=== PATIENT | male | born 1970 | race Two or more races ===

== ENCOUNTER 2025-10-25 22:25 | Emergency (ER) | payer OTHER, SELFPAY ==
[2025-10-25 22:25] VITALS: BMI 31.0
--- NOTE | 2025-10-25 22:32 | EKG_ITS ---
[facility] Test Date: 2025-10-25 Pat Name: LOUISE ANTHONY Department: Room: - Gender: Male [employer] Turner: : 1970 Requested By: Sandy Epperson Order Number: [id number] Reading MD: Sandy Epperson Measurements Intervals [place] Rate: 78 P: 45 ID: [id number] QRS: -7 QRSD: 82 T: 29 QT: 342 QTc: 390 Interpretive Statements SINUS RHYTHM INFERIOR MYOCARDIAL INFARCTION , PROBABLY OLD [40+ ms Q WAVE AND/OR ST/T ABNORMALITY IN II/aVF] No previous ECG available for comparison /[id number]/[id number].pdf
[2025-10-25 22:39] VITALS: BP 158/115; BP 172/110; PULSE 73; RESP 18; TEMP 37.1; O2SAT 96
[2025-10-25 22:57] VITALS: BP 165/97
--- NOTE | 2025-10-25 22:57 | XR_ITS ---
EXAMINATION: PA chest single view TECHNIQUE: Upright PA chest single view Date and time: October 25, 2025, 11:07 p.m. INDICATIONS: Chest pain today. FINDINGS: Suspicious for early right lower lobe pneumonia Normal heart size No pulmonary edema IMPRESSION: Suspicious for early right lower lobe pneumonia
--- NOTE | 2025-10-25 22:58 | PD.EDRME ---
Rapid Medical Screening Exam RME Arrival date/time: 10/25/25 22:25 This is a case of 55-year-old male who came into the emergency room due to chest pain no shortness of breath no palpitation the patient states that he had a blood test last June and noted to be elevated LDL level patient also had echo echocardiogram stress test and Holter monitor which is also normal Chief Complaint: Chest Pain Time Seen by Provider: 10/25/25 22:37 Vital signs: Vital Signs Temperature 98.8 F 10/25/25 22:39 Pulse Rate 73 10/25/25 22:39 Respiratory Rate 18 10/25/25 22:39 Blood Pressure 158/115 H 10/25/25 22:39 Pulse Oximetry (%) 96 10/25/25 22:39 Oxygen Delivery Method Room Air 10/25/25 22:39 Exam: Normal rate regular rhythm no murmur clear breath sound no pitting edema Clinical Impression: chest pain
[2025-10-25 23:24] LABS: Basophils # (Auto) 0.0 Thou/mm3 (0.0-0.2); Basophils % (Auto) 0 % (0-2.5); Eosinophils # (Auto) 0.3 Thou/mm3 (0.0-0.5); Eosinophils % (Auto) 4 % (0-10); Hematocrit 43.2 % (41.0-53.0); Hemoglobin 14.1 g/dL (13.5-16.0); Immature Granulocytes Auto 0.03 Thou/mm3 (0.00-0.00); Lymphocytes # (Auto) 2.1 Thou/mm3 (1.0-4.8); Lymphocytes % (Auto) 28 % (10-50); Mean Corpuscular HGB Conc 32.6 g/dl (31.0-37.0); Mean Corpuscular Hemoglobin 28.9 pg (25.0-35.0); Mean Corpuscular Volume 89 fL (80-100); Monocytes # (Auto) 0.7 Thou/mm3 (0.0-0.8); Monocytes % (Auto) 10 % (0-12); Neutrophils # (Auto) 4.4 Thou/mm3 (1.8-7.7); Neutrophils % (Auto) 58 % (37-80); Nucleated Red Blood Cell # 0.00 Thou/mm3 (0.00-0.00); Nucleated Red Blood Cell % 0 /100 WBC (0); Platelet Count 255 Thou/mm3 (140-440); RDW Standard Deviation 41.5 fL (35.1-43.9); Red Blood Count 4.88 Miln/mm3 (4.50-5.90); White Blood Count 7.6 Thou/mm3 (3.8-10.6)
[2025-10-25 23:45] LABS: B-Type Natriuretic Peptide < 20 pg/mL (0-100)
[2025-10-25 23:47] LABS: Alanine Aminotransferase 26 U/L (10-49); Albumin, Serum 4.9 gm/dL (3.5-5.0); Albumin/Globulin Ratio 1.8 (1.2-2.2); Alkaline Phosphatase 109 U/L (46-116); Anion Gap 10 (7-16); Aspartate Amino Transferase 26 U/L (0-34); BUN/Creatinine Ratio 10 Ratio (12-20); Bilirubin,Total 0.7 mg/dL (0.3-1.2); Blood Urea Nitrogen 13 mg/dL (9-23); Calcium 9.5 mg/dL (8.3-10.6); Calcium (Corrected) 9.5 mg/dL (8.5-10.1); Carbon Dioxide 28.0 mMol/L (20.0-31.0); Chloride 105 mMol/L (98-107); Creatinine (Component) 1.3 mg/dL (0.6-1.3); Estimated Creatinine Clearance 72.3 mL/min (>60); Globulin 2.7 gm/dL (2.3-3.5); Glucose 88 mg/dL (74-106); Osmolality,Calculated 284 (275-295); Potassium 4.5 mMol/L (3.4-5.1); Sodium 143 mMol/L (136-145); Total Protein 7.6 gm/dL (5.7-8.2); Troponin I < 0.002 ng/mL (0.0-0.045); eGFR > 60 See Note
[2025-10-25 23:51] LABS: Collection Type, Urine Clean Catch
[2025-10-25 23:58] LABS: Bilirubin,Urine Negative (Negative); Blood,Urine Negative (Negative); Clarity,Urine Clear (Clear/Hazy); Color,Urine Lt-Yellow (Lt Yel-Yel); Glucose, Urine Negative (Negative); Ketones,Urine Negative (Negative); Leukocyte Esterase,Urine Negative (Negative); Nitrite,Urine Negative (Negative); PH,Urine 6.0 (5.0-7.0); Protein,Urine Negative (Neg - Trace); RBC,Urine 4 /hpf (0-3); Specific Gravity,Urine 1.027 (1.001-1.035); Squamous Epithelial Cell,Urine < 1 /hpf (0-5); Urobilinogen,Urine Negative mg/dL (0.0-1.0); WBC,Urine 1 /hpf (0-5)
[2025-10-26 01:30] VITALS: BP 159/104; PULSE 71; RESP 16; TEMP 36.6; O2SAT 98
[2025-10-26 04:14] LABS: Troponin I < 0.002 ng/mL (0.0-0.045)
== END 2025-10-26 02:58 | disposition left against medical advice (07) ==
LOC: SERX 10-26 01:58
PROVIDERS: Nurse Practitioner Family; Emergency Provider Emergency Medicine; PCP Family Medicine
DX: R07.9 Chest pain, unspecified (principal); R94.31 Abnormal electrocardiogram [ECG] [EKG]; Z53.29 Procedure and treatment not carried out because of patient's decision for other reasons
CPT/HCPCS: 36415; 71045; 80053; 81001; 83880; 84484; 85025; 93005; 99283